=== PATIENT | male | born 1990 | race African-American/Black ===

== ENCOUNTER 2017-10-02 16:07 | Emergency (ER) | payer SELFPAY ==
[~2017-10-02] VITALS: Ht 188 cm; Wt 82.0 kg
[2017-10-02 16:25] VITALS: BP 146/79
== END 2017-10-02 17:29 | disposition left against medical advice (07) ==
LOC: ER 16:07
DX: R45.1 Restlessness and agitation (principal); Z53.21 Procedure and treatment not carried out due to patient leaving prior to being seen by health care provider

== ENCOUNTER 2017-10-02 17:46 | Emergency (ER) | payer SELFPAY ==
[~2017-10-02] VITALS: Ht 188 cm; Wt 82.0 kg
[2017-10-02] MEDS ORDERED: LORAZEPAM 2MG/ML CPJ IM ONE (18:00)
[2017-10-02] MEDS ORDERED: HALOPERIDOL LACTATE 5MG/ML VIAL IM ONE (19:15)
[2017-10-02 19:33] LABS: EOSINOPHILS % 0.4 % (0.0-5.0); HEMOGLOBIN. 14.4 g/dL (14.0-18.0); LYMPHOCYTES % 47.5 % (20.0-50.0); MEAN CORPUSCULAR HEMOGLOBIN 31.1 pg (28.0-32.0); MEAN CORPUSCULAR VOLUME 88.7 fL (80.0-94.0); MEAN PLATELET VOLUME 9.9 fl (7.4-10.4); MONOCYTES % 11.4 % (2.0-8.0); NEUTROPHILS % 39.7 % (40.0-76.0); PLATELET 145 x1000/uL (130-400); RED BLOOD CELL COUNT 4.63 mill/uL (4.7-6.1); RED CELL DISTRIBUTION WIDTH 13.3 % (11.6-14.6)
[2017-10-02 19:41] LABS: CHLORIDE 104 mEq/L (98-107)
[2017-10-02 19:46] LABS: ETHANOL BLOOD < 10 mg/dL
[2017-10-03 02:26] VITALS: BP 117/60
== END 2017-10-03 03:12 | disposition home or self-care (01) ==
LOC: ER 22:29
DX: T40.7X1A Poisoning by cannabis (derivatives), accidental (unintentional), initial encounter (principal); F12.10 Cannabis abuse, uncomplicated; R45.1 Restlessness and agitation; F91.8 Other conduct disorders; Z78.1 Physical restraint status; Y92.89 Other specified places as the place of occurrence of the external cause
CPT/HCPCS: 36415; 80048; 80307; 80329; 85025; 96372; 99284; G0482; J1630; J2060